=== PATIENT | male | born 1960 | race Caucasian/White ===

== ENCOUNTER 2020-05-22 09:45 | Emergency (ER) | payer OTHER ==
[~2020-05-22] VITALS: Ht 172.7 cm; Wt 78.9 kg
[~2020-05-22 09:45] MED LIST: AMIODARONE HCL400 MG PO; ASPIRIN EC325 MG PO; ATORVASTATIN CA40 MG PO; BISOPROLOL FUMAR5 MG; ISOSORBIDE DINI10 MG PO; METOPROLOL TART25 MG PO; OXYCODONE HCL5 MG PO; PRAVACHOL20 MG; PRILOSEC20 MG
[2020-05-22] MEDS ORDERED: VIGAMOX3 ML OPTH (10:45)
== END 2020-05-22 10:57 | disposition home or self-care (01) ==
LOC: ED 09:45
DX: H18.821 Corneal disorder due to contact lens, right eye (principal); I25.2 Old myocardial infarction; Z88.0 Allergy status to penicillin; Z79.899 Other long term (current) drug therapy; Z79.82 Long term (current) use of aspirin
CPT/HCPCS: 99283

== ENCOUNTER → 2020-09-06 | Emergency (ER) | payer OTHER ==
[~2020-09-06] VITALS: Ht 172.7 cm; Wt 78.9 kg
[~2020-09-06] MED LIST changes: +OMEPRAZOLE20 MG PO; +VIGAMOX3 ML OPTH
--- NOTE | 2020-09-06 19:10 | EKG ---
[facility] [address] [facility] [place] [address] Signed Sinus rhythm with frequent and consecutive premature ventricular complexes Possible Left atrial enlargement Incomplete right bundle branch block Abnormal ECG When compared with ECG of 09-JUN-2016 15:23, premature ventricular complexes are now present Incomplete right bundle branch block is now present ST now depressed in Lateral leads Nonspecific T wave abnormality, improved in Inferior leads T wave inversion no longer evident in Anterior leads Confirmed by PRIETO SCOTT DO ([id number]) on 09/06/2020 7:09:51 PM Electronically Signed By: PRIETO SCOTT DO 09/06/201909 PATIENT NAME: LOUIE PHILLIPS Electrocardiogram DATE OF : 60 PHYSICIAN: PRIETO SCOTT DO REPORT #: [id number] REPORT IS CONFIDENTIAL AND NOT TO BE RELEASED WITHOUT AUTHORIZATION
== END ==
LOC: ED 17:34
DX: R07.89 Other chest pain (principal); R55 Syncope and collapse; Z20.822 Contact with and (suspected) exposure to COVID-19; I25.2 Old myocardial infarction; Z88.0 Allergy status to penicillin
CPT/HCPCS: 71045; 80053; 83735; 84484; 85025; 85610; 85730; 93005; 93010; 96374; 99285-25; C9803; J1644; U0003

== ENCOUNTER 2022-12-31 23:00 | Emergency (ER) | payer OTHER ==
[~2022-12-31] VITALS: Ht 172.7 cm; Wt 79.8 kg
[2022-12-31] MEDS ORDERED: EZETIMIBE10 MG PO (23:15)
[2022-12-31] MEDS ORDERED: LOSARTAN POTASS25 MG PO (23:15)
[2022-12-31] MEDS ORDERED: PANTOPRAZOLE SO40 MG PO (23:16)
[2023-01-01] MEDS ORDERED: CELEBREX100 MG PO (00:38)
[2023-01-01 00:43] VITALS: BP 130/83
== END 2023-01-01 00:43 | disposition home or self-care (01) ==
LOC: ED 23:00
DX: S80.02XA Contusion of left knee, initial encounter (principal); X58.XXXA Exposure to other specified factors, initial encounter; I10 Essential (primary) hypertension; I25.2 Old myocardial infarction; R73.03 Prediabetes; Z88.0 Allergy status to penicillin; Z79.899 Other long term (current) drug therapy; Z79.82 Long term (current) use of aspirin
CPT/HCPCS: 93971; 99283 25